=== PATIENT | male | born 1970 | race Caucasian/White ===

== ENCOUNTER 2016-10-23 08:26 | Emergency (ER) | payer BC ==
--- NOTE | 2016-10-23 09:39 | EKG REPORT ---
SEVERITY:- ABNORMAL ECG - SINUS RHYTHM PROBABLE LEFT ATRIAL ABNORMALITY BORDERLINE R WAVE PROGRESSION, ANTERIOR LEADS ABNORMAL T, CONSIDER ISCHEMIA, LATERAL LEADS : Confirmed by: Praveena Roberts 23-Oct-2016 09:38:25
[2016-10-23 09:41] LABS: ABSOLUTE EOSINOPHILS # (AUTO) 0.2 10^3/uL (0.0-0.6); ABSOLUTE LYMPHOCYTES (AUTO) 1.4 10^3/uL (0.5-4.7); ABSOLUTE MONOCYTES (AUTO) 0.4 10^3/uL (0.1-1.4); ABSOLUTE NEUT (AUTO) 1.9 10^3/uL (1.7-8.2); BASOPHILS % (AUTO) 1.2 % (0-2); EOSINOPHILS % (AUTO) 3.9 % (0-6); HEMATOCRIT 43.8 % (37.9-51.0); HEMOGLOBIN 14.6 g/dL (13.5-17.0); LYMPHOCYTES % (AUTO) 35.1 % (13-45); MEAN CORPUSCULAR HEMOGLOBIN 28.5 pg (27.0-33.4); MEAN CORPUSCULAR HGB CONC 33.4 g/dL (32.0-36.0); MEAN CORPUSCULAR VOLUME 85 fl (80-97); MONOCYTES % (AUTO) 10.9 % (3-13); RED BLOOD COUNT 5.13 10^6/uL (4.35-5.55); RED CELL DISTRIBUTION WIDTH 14.2 % (11.5-14.0); SEGMENTED NEUTROPHILS % (AUTO) 48.9 % (42-78); WHITE BLOOD COUNT 3.9 10^3/uL (4.0-10.5)
[2016-10-23 10:06] LABS: ANION GAP 10 (5-19); BLOOD UREA NITROGEN 17 mg/dL (7-20); CALCIUM 9.5 mg/dL (8.4-10.2); CARBON DIOXIDE 25 mmol/L (22-30); CHLORIDE 108 mmol/L (98-107); CREATININE RESULT 0.85 mg/dL (0.52-1.25); GLUCOSE 117 mg/dL (75-110); POTASSIUM 4.5 mmol/L (3.6-5.0); SODIUM 143.3 mmol/L (137-145)
--- NOTE | 2016-10-23 12:20 | ER Document Report ---
ED General - General Chief Complaint: High Blood Pressure Stated Complaint: BLOOD PRESSURE PROBLEMS TRAVEL OUTSIDE OF THE [place] IN LAST 30 DAYS: No - HPI Patient complains to provider of: elevated blood pressure Notes: Patient presents today for elevated blood pressure. 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 Upon his arrival patient's blood pressure was 150/100. Patient had a recent travel bypass currently is taking carvedilol and lisinopril. Patient states compliance with his medications. Patient states blood pressure has been in the 150s before his training specialist and instructed him to lose weight. Otherwise patient denies any other symptoms no chest pain or fevers chills nausea vomiting. - Related Data Allergies/Adverse Reactions: codeine Allergy (Verified 10/23/16 08:29) Difficulty breathing Past Medical History - Social History Smoking Status: Unknown if Ever Smoked Chew tobacco use (# tins/day): No Frequency of alcohol use: Occasional Drug Abuse: None Family History: Reviewed & Not Pertinent Patient has suicidal ideation: No Patient has homicidal ideation: No - Past Medical History Cardiac Medical History: Reports: Hx Hypercholesterolemia, Hx Hypertension Renal/ Medical History: Denies: Hx Peritoneal Dialysis Past Surgical History: Reports: Hx Cardiac Surgery - bypass in 06/12, Hx Orthopedic Surgery - knee elbow - Immunizations Hx Diphtheria, Pertussis, Tetanus Vaccination: Yes Review of Systems - Review of Systems Constitutional: No symptoms reported EENT: No symptoms reported Cardiovascular: Chest pain Respiratory: Short of breath Gastrointestinal: No symptoms reported Genitourinary: No symptoms reported Male Genitourinary: No symptoms reported Musculoskeletal: No symptoms reported Skin: No symptoms reported Hematologic/Lymphatic: No symptoms reported Neurological/Psychological: No symptoms reported -: Yes All other systems reviewed and negative Physical Exam - Vital signs Vitals: Temp Pulse Resp BP Pulse Ox 98.4 F 73 20 158/102 H 97 10/23/16 08:29 10/23/16 08:29 10/23/16 08:29 10/23/16 08:29 10/23/16 08:29 Interpretation: Normal - General General appearance: Appears well, Alert - HEENT Head: Normocephalic, Atraumatic Eyes: Normal Pupils: PERRL - Respiratory Respiratory status: No respiratory distress Chest status: Nontender Breath sounds: Normal Chest palpation: Normal - Cardiovascular Rhythm: Regular Heart sounds: Normal auscultation Murmur: No - Abdominal Inspection: Normal Distension: No distension Bowel sounds: Normal Tenderness: Nontender Organomegaly: No organomegaly - Back Back: Normal, Nontender - Extremities General upper extremity: Normal inspection, Nontender, Normal color, Normal ROM , Normal temperature General lower extremity: Normal inspection, Nontender, Normal color, Normal ROM , Normal temperature, Normal weight bearing. No: Mars's sign - Neurological Neuro grossly intact: Yes Cognition: Normal Orientation: AAOx4 [place] Coma Scale Eye Opening: Spontaneous [place] Coma Scale Verbal: Oriented [place] Coma Scale Motor: Obeys Commands [place] Coma Scale Total: 15 Speech: Normal Motor strength normal: LUE, RUE, LLE, RLE Sensory: Normal - Psychological Associated symptoms: Normal affect, Normal mood - Skin Skin Temperature: Warm Skin Moisture: Dry Skin Color: Normal Course - Re-evaluation Re-evalutation: 10/23/16 14:59 Laboratory did not show any specific etiology. Patient feeling better patient' s blood pressures remained pretty stable. Instructed the patient follow-up with primary care physician for further evaluation of his blood pressure. Patient agrees with plan will be discharged home - Vital Signs Vital signs: Temp Pulse Resp BP Pulse Ox 98.4 F 73 20 142/97 H 100 10/23/16 08:31 10/23/16 08:31 10/23/16 08:31 10/23/16 13:01 10/23/16 13:01 - Laboratory Result Diagrams: 10/23/16 09:20 10/23/16 09:20 Laboratory results interpreted by me: 10/23/16 10/23/16 09:20 09:20 WBC 3.9 L RDW 14.2 H Chloride 108 H Glucose 117 H Discharge - Discharge Clinical Impression: Hypertension Qualifiers: Hypertension type: essential hypertension Qualified Code(s): I10 - Essential ( primary) hypertension Condition: Good Disposition: HOME, SELF-CARE Instructions: High Blood Pressure ([facility]) Additional Instructions: Please follow-up with your primary care physician and your DrLizbeth for further evaluation of your blood pressure. Return to the ER for any concerning issues. Forms: Return to Work
[2016-10-23 13:14] VITALS: BP 142/97
== END 2016-10-23 13:01 | disposition home or self-care (01) ==
LOC: ER 08:26
DX: I10 Essential (primary) hypertension (principal); R07.9 Chest pain, unspecified; R53.83 Other fatigue; R06.02 Shortness of breath; Z79.899 Other long term (current) drug therapy; Z88.5 Allergy status to narcotic agent; Z95.1 Presence of aortocoronary bypass graft
CPT/HCPCS: 36415; 80048; 84484; 85025; 93005; 93010; 99284